=== PATIENT | female | born 1930 | race Asian ===

== ENCOUNTER 2019-07-29 16:57 | Emergency (ER) | payer OTHER, MEDICAID ==
[~2019-07-29] VITALS: Ht 162.6 cm; Wt 65.8 kg
[~2019-07-29 16:57] MED LIST: ACTOS15 MG ORAL; ATORVASTATIN CA20 MG ORAL; CHLORTHALIDONE25 MG ORAL; DONEPEZIL HCL10 M2 ORAL; JANUVIA25 MG ORAL; LOSARTAN POTASS50 MG ORAL; MAG-OXIDE400 M1 PO; NAMENDA10 MG ORAL; NITROFURANTOIN25 MG PO; OXYBUTYNIN CHLOR5 M1 ORAL; VENLAFAXINE HCL75 M1 ORAL; VITAMIN D250000 UNI1 ORAL
[2019-07-29 17:00] VITALS: BP 142/74
--- NOTE | 2019-07-29 17:00 | NUR ---
ED Nurse Note: Pt brought in by ambulance from home d/t family complaints of low bp, poor PO intake and lethargy over a couple weeks. Pt placed on monitor and vital signs stable as documented. BP 143/56. Pt SR @ 64. Respirations even and unlabored on room air. Pt is very difficult to arouse. Mumbles only a few incomprehensible words. Pt in stable condition.
--- NOTE | 2019-07-29 17:05 | NUR ---
ED Nurse Note: Iv inserted, blood drawn, urine collected and sent down to lab
--- NOTE | 2019-07-29 17:07 | Emergency Room Report ---
History of Present Illness General Chief Complaint: Generalized Weakness Source: Patient Present Illness HPI Disclaimer: Please note that this report is being documented using videof.meON technology. This can lead to erroneous entry secondary to incorrect interpretation by the dictating instrument. HPI: 89-year-old female with a history of diabetes and hypertension presents for evaluation of weakness and low blood pressure at home. She is primarily Indonesian speaking. Per EMS, they were called to the home for low blood pressure reading according to family however on their arrival blood pressure was within normal limits. Using a music educator they stated she has not been eating or drinking recently which she has a history of. The reported failure to thrive is part of her medical history as well as hypertension and diabetes and unspecified cardiac disease. Per EMS, family did not report any recent changes in her health or medications. Patient appears somnolent, responding to verbal and physical stimuli but not providing any history. Reportedly, this is her baseline per EMS PMH: Hypertension, diabetes PSH: Reviewed Allergies: None listed in medical chart Social Hx: None listed in medical chart Allergies: Coded Allergies: No Known Allergies (Unverified , 07/09/19) Patient History Last Menstrual Period: NA Nursing Documentation-PMH Past Medical History: No History, Except For Hx Cardiac Problems: Yes Hx Hypertension: Yes Hx Diabetes: Yes Hx Cancer: No Hx Gastrointestinal Problems: No Hx Neurological Problems: No Review of Systems All Other Systems: limited - Due to clinical condition Physical Exam Vital Signs Date Time Temp Pulse Resp B/P (MAP) Pulse Ox O2 Delivery O2 Flow Rate FiO2 07/29/19 16:52 98.1 72 18 138/72 (94) 97 Room Air General: Awake and alert, no acute distress HEENT: NC/AT. EOMI. pupils are 1 mm bilaterally. Mucous membranes are dry Neck: Supple, trachea midline Cardiovascular: RRR. S1 and S2 normal. No murmur appreciated Resp: Normal work of breathing. No cough, wheezing or crackles appreciated Abdomen: Abdomen is soft, nondistended. Nontender Skin: Intact. No abrasions, laceration or rash over the exposed skin MSK: Normal tone and bulk. Moving all extremities. No obvious deformity. Neuro: Somnolent but responds to verbal and physical stimuli. Indonesian speaking only. Medical Decision Making Diagnostic Impression: Primary Impression: Acute renal failure Additional Impression: UTI (urinary tract infection) ER Course 89-year-old female with a history of hypertension diabetes presents for evaluation of generalized weakness, failure to thrive and reported low blood pressure reading by home meter by family. Differential includes was not limited to malnutrition, dehydration, viral syndrome, pneumonia, urinary tract infection, medication side effect. Patient's pupils are pinpoint however she has no evidence of narcotic overdose otherwise with stable vital signs, normal respirations, responds well to verbal and physical stimuli though there is a language barrier. Start a metabolic infectious work-up provide IV fluids. Laboratory Tests Test 07/29/19 17:10 White Blood Count 5.9 K/UL (4.8-10.8) Red Blood Count 3.73 M/UL (4.20-5.40) L Hemoglobin 11.7 G/DL (12.0-16.0) L Hematocrit 34.3 % (37.0-47.0) L Mean Corpuscular Volume 92 FL (80-99) Mean Corpuscular Hemoglobin 31.4 PG (27.0-31.0) H Mean Corpuscular Hemoglobin Concent 34.1 G/DL (32.0-36.0) Red Cell Distribution Width 10.3 % (11.6-14.8) L Platelet Count 265 K/UL (150-450) Mean Platelet Volume 5.8 FL (6.5-10.1) L Neutrophils (%) (Auto) 65.2 % (45.0-75.0) Lymphocytes (%) (Auto) 26.3 % (20.0-45.0) Monocytes (%) (Auto) 7.8 % (1.0-10.0) Eosinophils (%) (Auto) 0.3 % (0.0-3.0) Basophils (%) (Auto) 0.4 % (0.0-2.0) Urine Color Pale yellow Urine Appearance Slightly cloudy Urine pH 7 (4.5-8.0) Urine Specific [place] 1.005 (1.005-1.035) Urine Protein Negative (NEGATIVE) Urine Glucose (UA) Negative (NEGATIVE) Urine Ketones Negative (NEGATIVE) Urine Blood Negative (NEGATIVE) Urine Nitrite Positive (NEGATIVE) H Urine Bilirubin Negative (NEGATIVE) Urine Urobilinogen Normal MG/DL (0.0-1.0) Urine Leukocyte Esterase 1+ (NEGATIVE) H Urine RBC 0-2 /HPF (0 - 2) Urine WBC 10-15 /HPF (0 - 2) H Urine Squamous Epithelial Cells Many /LPF (NONE/OCC) H Urine Bacteria Many /HPF (NONE) H Sodium Level 138 MMOL/L (136-145) Potassium Level 4.4 MMOL/L (3.5-5.1) Chloride Level 98 MMOL/L (98-107) Carbon Dioxide Level 35 MMOL/L (21-32) H Anion Gap 5 mmol/L (5-15) Blood Urea Nitrogen 31 mg/dL (7-18) H Creatinine 1.5 MG/DL (0.55-1.30) H Estimate Glomerular Filtration Rate mL/min (>60) Glucose Level 106 MG/DL (74-106) Calcium Level 8.6 MG/DL (8.5-10.1) Phosphorus Level 3.7 MG/DL (2.5-4.9) Magnesium Level 2.2 MG/DL (1.8-2.4) Total Bilirubin 0.2 MG/DL (0.2-1.0) Aspartate Amino Transferase (AST) 27 U/L (15-37) Alanine Aminotransferase (ALT) 21 U/L (12-78) Alkaline Phosphatase 76 U/L (46-116) Troponin I 0.003 ng/mL (0.000-0.056) Pro-B-Type Natriuretic Peptide 159 pg/mL (0-125) H Total Protein 7.2 G/DL (6.4-8.2) Albumin 3.1 G/DL (3.4-5.0) L Globulin 4.1 g/dL Albumin/Globulin Ratio 0.8 (1.0-2.7) L Urine Opiates Screen Negative (NEGATIVE) Urine Barbiturates Screen Negative (NEGATIVE) Phencyclidine (PCP) Screen Negative (NEGATIVE) Urine Amphetamines Screen Negative (NEGATIVE) Urine Benzodiazepines Screen Negative (NEGATIVE) Urine Cocaine Screen Negative (NEGATIVE) Urine Marijuana (THC) Screen Negative (NEGATIVE) EKG Diagnostic Results EKG Time: 17:22 Rate: normal Rhythm: NSR ST Segments: no acute changes Other Impression Sinus rhythm, left axis deviation, normal intervals, Q waves in III, aVF. No acute ST segment changes. Rhythm Strip Diag. Results Rhythm Strip Time: 17:22 EP Interpretation: yes Rate: 60s Rhythm: NSR, no PVC's, no ectopy Chest X-Ray Diagnostic Results Chest X-Ray Diagnostic Results : Chest X-Ray Ordered: Yes # of Views/Limited/Complete: 1 View Indication: Other - Weakness Interpretation: no consolidation, no effusion, no pneumothorax, no acute cardiopulmonary disease, other - Cardiomegaly is demonstrated on previous x-ray Impression: No acute disease Electronically Signed by: Electronically signed by Dr. Stoney Cary Reevaluation Time: 20:10 Last Vital Signs Date Time Temp Pulse Resp B/P (MAP) Pulse Ox O2 Delivery O2 Flow Rate FiO2 07/29/19 16:52 98.1 72 18 138/72 (94) 97 Room Air Reevaluation Impression Labs show positive nitrites and bacteria with presence of white cells as well. 1+ leukocyte esterase. Concerning for acute urinary tract infection. Ceftriaxone ordered. Renal function shows a BUN of 1.5 which was the same as her discharge however BUN is slightly elevated concerning for acute kidney injury. Will continue IV fluids. Discussed with her PMDs office,Dr. Davis is covering for Dr. Frances, who stated they will arrange for IV antibiotics and continued IV fluids to be given in the patient's home tomorrow. Dr. Davis recommeding the patient be discharged home and follow-up on an outpatient basis to continue treatment for urinary tract infection and JONATHAN. Family is agreeable with this plan. They are able to take the patient home. They will bring her back with any new or worsening symptoms. Disposition: HOME, SELF-CARE Condition: Stable Scripts Cephalexin* (KEFLEX*) 500 Mg Capsule 500 MG ORAL EVERY 12 HOURS, #14 CAP 0 Refills Prov: Stoney Cary MD 07/29/19 Stoney Cary MD Jul 29, 2019 17:07
--- NOTE | 2019-07-29 17:15 | NUR ---
ED Nurse Note: xray @ bedside
[2019-07-29 17:28] LABS: BILIRUBIN, URINE NEGATIVE (NEGATIVE); COLOR,URINE PALE YELLOW; GLUCOSE, URINE (UA) NEGATIVE (NEGATIVE); KETONES,URINE NEGATIVE (NEGATIVE); LEUKOCYTE ESTERASE ,URINE 1+ (NEGATIVE); NITRITE,URINE POSITIVE (NEGATIVE); PH,URINE 7 (4.5-8.0); PROTEIN,URINE NEGATIVE (NEGATIVE); UROBILINOGEN,URINE NORMAL MG/DL (0.0-1.0)
[2019-07-29 17:29] LABS: APPEARANCE,URINE SLIGHTLY CLOUDY; BASOPHILS % (AUTO) 0.4 % (0.0-2.0); EOSINOPHILS % (AUTO) 0.3 % (0.0-3.0); HEMATOCRIT 34.3 % (37.0-47.0); HEMOGLOBIN 11.7 G/DL (12.0-16.0); LYMPHOCYTES % (AUTO) 26.3 % (20.0-45.0); MEAN CORPUSCULAR VOLUME 92 FL (80-99); MONOCYTES % (AUTO) 7.8 % (1.0-10.0); NEUTROPHILS % (AUTO) 65.2 % (45.0-75.0); PLATELET COUNT 265 K/UL (150-450); RED BLOOD COUNT 3.73 M/UL (4.20-5.40); RED CELL DISTRIBUTION WIDTH 10.3 % (11.6-14.8); WHITE BLOOD COUNT 5.9 K/UL (4.8-10.8)
[2019-07-29 17:40] LABS: ANION GAP 5 mmol/L (5-15); BLOOD UREA NITROGEN 31 mg/dL (7-18); CALCIUM 8.6 MG/DL (8.5-10.1); CARBON DIOXIDE 35 MMOL/L (21-32); CHLORIDE 98 MMOL/L (98-107); CREATININE 1.5 MG/DL (0.55-1.30); POTASSIUM 4.4 MMOL/L (3.5-5.1); SODIUM 138 MMOL/L (136-145)
[2019-07-29 17:50] LABS: ALANINE AMINOTRANSFERASE 21 U/L (12-78); ALBUMIN 3.1 G/DL (3.4-5.0); ALBUMIN/GLOBULIN RATIO 0.8 (1.0-2.7); ALKALINE PHOSPHATASE 76 U/L (46-116); ASPARTATE AMINO TRANSFERASE 27 U/L (15-37); BILIRUBIN,TOTAL 0.2 MG/DL (0.2-1.0); PHOSPHORUS 3.7 MG/DL (2.5-4.9)
--- NOTE | 2019-07-29 17:53 | NUR ---
ED Nurse Note: Pt awake and alert now. Assessed pt's orientation and she is confused. A+Ox1.
[2019-07-29] MEDS ORDERED: cefTRIAXone 1 GM in NS 55 ML IVPB ONE (18:30)
--- NOTE | 2019-07-29 18:57 | NUR ---
ED Nurse Note: family @ bedside
--- NOTE | 2019-07-29 19:12 | NUR ---
HAND-OFF: Report given to LAZARUS Arriaga. Pt in stable condition; plan of care endorsed.
[2019-07-29 19:30] VITALS: BP 129/64
--- NOTE | 2019-07-29 20:00 | NUR ---
ED Nurse Note: Recieved report to resume care, pt in bed awake, alert and oriented x 4, pt was being admitted but now after speaking with primary pt will be discharged, on monitoirng, v/s stable, pt is answering with verbal reposnse, slovenian speaking only, pt sisters at bedside to assist with translation, IV site intact and patent, will continue to monitor and prepare for d/c when care completed.
[2019-07-29] MEDS ORDERED: CEPHALEXIN500 MG ORAL (21:00)
[2019-07-29 22:10] VITALS: BP 136/71
--- NOTE | 2019-07-29 22:20 | NUR ---
ER DISCHARGE NOTE: Patient is cleared to be discharged per ERMD, pt is aox4, on room air, with stable vital signs. pt was given dc and prescription instructions, pt was able to verbalize understanding, pt id band and iv site removed without complications. pt is able to ambulate with steady gait. pt took all belongings.
[2019-07-29 22:25] VITALS: BP 136/71
--- NOTE | 2019-07-30 10:29 | Diagnostic Imaging Report ---
Indication: Reason For Exam: AMS Technique: One view of the chest Comparison: 07/09/2019 Findings: Heart is borderline enlarged. The left lateral hemidiaphragm is obscured. The remainder of lungs pleural spaces are clear. The bones are unremarkable Impression: Obscures left lateral hemidiaphragm, could indicate pleural fluid and/or parenchymal disease of the left lung base. Correlate with clinical findings Otherwise clear lungs.
== END 2019-07-29 22:30 | disposition home or self-care (01) ==
LOC: EDBD 16:57 → EMR 17:05 → CANBEDREQ 20:16 → EMR 22:30
DX: N17.9 Acute kidney failure, unspecified (principal); N39.0 Urinary tract infection, site not specified; I10 Essential (primary) hypertension; E11.9 Type 2 diabetes mellitus without complications; I51.7 Cardiomegaly
CPT/HCPCS: 36415; 71045; 80053; 80307; 81003; 83735; 83880; 84100; 84484; 85025; 87086; 87181; 93005; 96361; 96365; 99284; J0696